=== PATIENT | female | born 1960 | race Caucasian/White ===

== ENCOUNTER → 2018-10-16 | Outpatient (CLI) | payer BC ==
[~2018-10-16] MED LIST: AC500T; LETR2.5T5 PO; MULT-974 PO; TAMO20TA2
--- NOTE | 2018-10-16 08:40 | Diagnostic Imaging Report ---
INDICATION: Postmenopausal screening COMPARISON: 07/25/2013 FINDINGS: AP Spine L1-L4: [BMD (g/cm2): 1.218] [T-Score: 0.1] [Z-Score: 0.7] [BMD Previous: 1.186] [BMD % Change: 2.7] LT Hip Neck: [BMD (g/cm2): 1.009] [T-Score: -0.2] [Z-Score: 0.6] LT Hip Total: [BMD (g/cm2):1.082] [T-Score:0.6] [Z-Score: 1.0] [BMD Previous: 1.089] [BMD % Change: -0.6] RT Hip Neck: [BMD (g/cm2):1.000] [T-Score:-0.3] [Z-Score:0.5] RT Hip Total: [BMD (g/cm2):1.050] [T-score:0.3] [Z-Score:0.8] [BMD Previous:1.085] [BMD % Change:-3.2] *Indicates significant change from prior examination based on 95% confidence level. World Health Organization criteria for BMD interpretation classify patients as Normal (T-score at or above -1.0), Osteopenic (T-score between -1.0 and -2.5) or Osteoporotic (T-score at or below -2.5). LIMITATIONS AND MODIFICATION: None. FRACTURE RISK (FRAX SCORE): The ten year probability of (%): Major Osteoporotic Fracture: [na] Hip Fracture: [na] IMPRESSION: 1. Normal Bone mineral density. 2. No significant change in bone mineral density since prior examination. 3. See below National Osteoporosis Foundation guidelines on when to potentially initiate pharmacologic therapy. Based on the National Osteoporosis Foundation Guidelines, pharmacologic treatment should be initiated in any of the following, unless clinical conditions suggest otherwise: * Any patient with prior fragility fracture of the hip or vertebrae. A spine fracture indicates 5X risk for subsequent spine fracture and 2X risk for subsequent hip fracture. * Osteoporosis (T-score <-2.5). * Postmenopausal women and men age 50 and older with low bone mass/osteopenia (T-score between -1.0 and -2.5) by DXA and 10-year major osteoporotic fracture greater than 20% or a 10-year probability of hip fracture greater than 3%. These fracture risks are supplied above in the FRAX score, if applicable. * Clinician judgement and/or patient preferences may indicate treatment for people with 10-year fracture probabilities above or below these levels. Dictated by: Dictated on workstation # [id number]
== END ==
LOC: RAD 08:05
PROVIDERS: ATTEND Internal Medicine Hematology & Oncology
DX: Z13.820 Encounter for screening for osteoporosis (principal); C50.911 Malignant neoplasm of unspecified site of right female breast; Z78.0 Asymptomatic menopausal state
CPT/HCPCS: 77080